=== PATIENT | female | born 1970 | race Caucasian/White ===

== ENCOUNTER 2020-12-09 14:17 | Outpatient (CLI) | payer BC, SELFPAY ==
--- NOTE | ~2020-12-09 | XR_ITS ---
EXAMINATION:XR cervical spine 4-5V DATE: 12/09/2020 14:41 INDICATION: Neck pain TECHNIQUE: AP, lateral, lateral swimmers and odontoid views of the cervical spine are provided. COMPARISON: None FINDINGS: There is 1 mm of anterolisthesis of C4 on C5. The odontoid is intact. No fracture is identi fied. Vertebral body heights and disk spaces are normal. Prevertebral soft tissues are normal. 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 IMPRESSION: 1. Mild cervical spondylosis without acute findings. Reviewed, dictated and finalized at location A.
--- NOTE | ~2020-12-09 | XR_ITS ---
EXAMINATION: XR chest 2V DATE: 12/09/2020 14:41 INDICATION: Shortness of breath TECHNIQUE: Frontal and lateral views of the chest are obtained COMPARISON: None available FINDINGS: The lungs are free of acute opacities. There is no pleural effusion or pneumothorax. The ca rdiomediastinal silhouette is normal. There is mild thoracic spondylosis. IMPRESSION: 1. No acute cardiopulmonary abnormality. Reviewed, dictated and finalized at location A.
== END 2020-12-09 14:18 | disposition home or self-care (01) ==
PROVIDERS: PCP Physician Assistant; Visit Provider Physician Assistant
DX: R06.02 Shortness of breath (principal); M47.813 Spondylosis without myelopathy or radiculopathy, cervicothoracic region
CPT/HCPCS: 71046; 72050

== ENCOUNTER 2022-05-08 00:11 | Day surgery (SDC) | payer BC, SELFPAY ==
[2022-03-23 12:56] VITALS: BMI 21.5
--- NOTE | 2022-04-27 09:12 | PC.NURSE ---
Attempt made to contact pt. regarding rescheduled procedure date and time. Left message on home phone and cell phone. Instructed to return call left on answering machines.
[2022-05-08 07:44] VITALS: BP 116/74; PULSE 83; RESP 18; TEMP 36.5; O2SAT 100
[2022-05-08] MEDS: LACTATED RINGERS 1,000 ML 150 ML IV CONT (07:54)
--- NOTE | 2022-05-08 08:34 | P.PNAN_ITS ---
Anes - Initial Pre Proc Eval Procedure: Operation Date: 05/08/22 08:30 Proposed Procedures p Screening Colonoscopy - Josh Pulido MD Date/Time: 05/08/22 08:34 Surgeon: Josh Pulido MD Pre Op Diagnosis: neoplasm screening Patient Data Age: 52 Gender: F Height: 1.63 m Weight: 58.5 kg Last Vital Signs Temp 97.7 F 05/08/22 07:44 Pulse 83 05/08/22 07:44 Resp 18 05/08/22 07:44 BP 116/74 05/08/22 07:44 Pulse Ox 100 05/08/22 07:44 O2 Del Method Room Air 05/08/22 07:44 Allergies Allergy/AdvReac Type Severity Reaction Status Date / Time No Known Allergies Allergy Verified 05/08/22 07:43 Home Medications Medication Instructions Recorded Confirmed Type citalopram 10 mg tablet 10 mg PO DAILY 03/23/22 03/23/22 History hydrochlorothiazide 25 mg tablet 25 mg PO DAILY 03/23/22 03/23/22 History levothyroxine 50 mcg tablet 50 mcg PO DAILY 03/23/22 03/23/22 History (Synthroid) Patient hx anesthesia problems: none Family hx anesthesia problems: none Results Review: All pre-operative results and documents have been reviewed as part of the pre- operative evaluation. PMFSH Social History Social History Alcohol intake: current Drinks per week: 1 Living arrangements: with family Spiritual care concerns: No Anes - Eval Final PreProcedure Day of Procedure 05/08/22 08:34 Patient weight: normal Heart: regular rate and rhythm Lungs: clear to auscultation Airway: Mallampati scale class II Neurological: alert and oriented Last oral intake: >/= 8 hours ASA classification: II Emergent: no Anesthetic plan: proceed Anesthesia type and monitoring: general GIVS and standard monitoring Results Review: All pre-operative results and documents have been reviewed as part of the pre- operative evaluation. Informed Consent: The patient's anesthetic plan and its attendant risks and benefits were discussed with the patient/family/POA. Questions were solicited and answers provided to the satisfaction of the patient/family/POA.
--- NOTE | 2022-05-08 08:50 | P.HP_ITS ---
H&P: HPI History of Present Illness Date/Time: 05/08/22 08:50 Chief Complaint: Neoplasia screening. Narrative: This is a 52-year-old white female patient presents for screening colonoscopy. Patient reports her current weight appetite and bowel movements are normal. Patient denies abdominal pain. She has had no bleeding. Family history is noncontributory. Patient does report occasional alteration in bowel habits. She Review of Systems Review of Systems: review of systems noncontributory. COUNTS INCLUDE 234 BEDS AT THE [facility] Social History Social History Alcohol intake: current Drinks per week: 1 Living arrangements: with family Spiritual care concerns: No Meds Home Medications and Allergies Home Medications Medication Instructions Recorded Confirmed Type citalopram 10 mg tablet 10 mg PO DAILY 03/23/22 03/23/22 History hydrochlorothiazide 25 mg tablet 25 mg PO DAILY 03/23/22 03/23/22 History levothyroxine 50 mcg tablet 50 mcg PO DAILY 03/23/22 03/23/22 History (Synthroid) Allergies Allergy/AdvReac Type Severity Reaction Status Date / Time No Known Allergies Allergy Verified 05/08/22 07:43 Vital Signs Vital Signs - 24 hr 05/08/22 07:44 Temperature 97.7 F Pulse Rate 83 Respiratory Rate 18 Blood Pressure 116/74 Pulse Oximetry 100 Oxygen Delivery Room Air Exam Narrative: Physical exam reveals patient be alert. Vital signs stable. HEENT exam is unremarkable. Patient is anicteric. Lungs are clear to auscultation and percussion. Heart is without murmur or extra sounds. Abdomen bowel sounds present soft nontender with no organomegaly. Digital external rectal exam is normal. Assessment and Plan Assessment and plan (1) Encounter for screening colonoscopy: Code(s): Z12.11 - Encounter for screening for malignant neoplasm of colon Status: Acute Assessment and Plan: Patient presents for screening colonoscopy. Appears to be at average risk for colon polyps. Further recommendations will be given after endoscopy.
[2022-05-08 09:12] VITALS: BP 107/56; PULSE 67; RESP 24; O2SAT 100
[2022-05-08 09:22] VITALS: BP 111/65; PULSE 67; RESP 23; O2SAT 100
[2022-05-08 09:32] VITALS: BP 126/67; PULSE 52; RESP 16; O2SAT 100
== END 2022-05-08 09:46 | disposition home or self-care (01) ==
PROVIDERS: PCP Physician Assistant; Visit Provider Internal Medicine Gastroenterology
PROC: 0DJD8ZZ Inspection of Lower Intestinal Tract, Via Natural or Artificial Opening Endoscopic (ICD-10-PCS; CPT 45378; principal; 2022-05-08 08:30)
DX: Z12.11 Encounter for screening for malignant neoplasm of colon (principal); K64.8 Other hemorrhoids; E03.9 Hypothyroidism, unspecified
CPT/HCPCS: 45378; J2704; J7120

== ENCOUNTER → 2023-07-26 15:11 | Outpatient (CLI) | payer BC, SELFPAY ==
--- NOTE | ~2023-07-26 | XR_ITS ---
EXAMINATION: [id number] INDICATION: Pleurodynia TECHNIQUE: A frontal view of the chest and 3 views of the left ribs were obtained. COMPARISON: 12/09/2020 FINDINGS: The lungs are free of acute opacities. No pleural effusion or pneumothorax. The cardiomedia stinal silhouette is normal. No displaced rib fracture is identified. IMPRESSION: 1. No acute cardiopulmonary abnormality or evidence of displaced rib fracture. Reviewed, dictated and finalized at location F. CLINICAL ADVISOR
== END ==
PROVIDERS: PCP Physician Assistant; Visit Provider Physician Assistant
DX: R07.81 Pleurodynia (principal)
CPT/HCPCS: 71101

== ENCOUNTER → 2023-08-13 11:39 | Outpatient (CLI) | payer BC, SELFPAY ==
--- NOTE | ~2023-08-13 | CT_ITS ---
EXAMINATION: CT pelvis w con DATE: 08/13/2023 12:20 INDICATION: Intra-abdominal and pelvic swelling. Right pelvic mass. TECHNIQUE: Computed tomography (CT) of the pelvis was performed with 100 mL Omnipaque 350 intravenous contrast. Automated exposure control and iterative reconstruction technique were employed. The dose- length product was 344.77 mGy-cm. COMPARISON: None FINDINGS: There is a 4.1 cm mass in the liver with interrupted peripheral puddling of contrast, consi stent with a hemangioma. There are no dilated loops of bowel. The appendix is normal. There are no pa thologically enlarged lymph nodes. There is no free intraperitoneal fluid. There is severe lower lumb ar spondylosis. IMPRESSION: 1. Liver hemangioma. Reviewed, dictated and finalized at location E. L BUILDER IMPRESSION: 1. Liver hemangioma.
[2023-08-13 12:12] LABS: Estimated Glomerular Filt Rate > 60
== END ==
PROVIDERS: PCP Physician Assistant; Visit Provider Physician Assistant
DX: D18.03 Hemangioma of intra-abdominal structures (principal); R19.00 Intra-abdominal and pelvic swelling, mass and lump, unspecified site
CPT/HCPCS: 72193; Q9967

== ENCOUNTER 2024-03-10 14:18 | Outpatient (CLI) | payer BC, SELFPAY ==
--- NOTE | ~2024-03-10 | MM_ITS ---
EXAMINATION: MM screening elva BI w imani HISTORY: Screening TECHNIQUE: Craniocaudal and mediolateral oblique 3-D tomosynthesis images were obtained and synthetic 2-D images were generated. CAD analysis was submitted and interpreted. COMPARISON: Comparison to multiple prior studies sequentially, with oldest reviewed study dated 11/02. BREAST PARENCHYMAL COMPOSITION: Not dense: There are scattered areas of fibroglandular density. FINDINGS: There is no evidence of suspicious mass, calcification, or architectural distortion to sugg est malignancy in either breast. There has been no suspicious interval change. IMPRESSION: 1. No mammographic evidence of malignancy. 2. Recommend routine screening mammography in one year. BI-RADS Category 1: Negative Reviewed, dictated and finalized at location B.
== END 2024-03-10 14:19 | disposition home or self-care (01) ==
LOC: ANHIMG 14:20
PROVIDERS: PCP Physician Assistant; Visit Provider Obstetrics & Gynecology
DX: Z12.31 Encounter for screening mammogram for malignant neoplasm of breast (principal)
CPT/HCPCS: 77063; 77067